=== PATIENT | female | born 1995 | race Caucasian/White ===

== ENCOUNTER 2017-04-07 02:45 | Emergency (ER) | payer BC ==
[~2017-04-07] VITALS: Ht 165.1 cm; Wt 66.7 kg
[2017-04-07 03:07] VITALS: BP 127/65
[2017-04-07] MEDS ORDERED: ONDANSETRON ODT 4 MG TAB.RAPDIS PO ONE (03:15)
--- NOTE | 2017-04-07 03:19 | PHYS DOC ---
Adult General Chief Complaint Chief Complaint: NAUSEA/VOMITING/DIARRHEA HPI HPI Patient is a 21 year old female who presents with complaint of nausea, vomiting , loose stools. Patient states her symptoms started 2 days ago and have been persistent. Patient states that she has had a total of 3 episodes of vomiting over the past 24 hours. Patient states that she is unable to eat or drink due to her symptoms. Patient denies any fevers. Patient states that she tried taking Dramamine [id number] for her symptoms with no relief. Patient denies any significant past medical or surgical history. Patient states that she stopped her menstrual period 3 days ago. Patient states that she is having discomfort in her upper abdomen but denies any sharp localizing pain anywhere else. Review of Systems Review of Systems Constitutional: Denies fever or chills [] Eyes: Denies change in visual acuity, redness, or eye pain [] HENT: Denies nasal congestion or sore throat [] Respiratory: Denies cough or shortness of breath [] Cardiovascular: Denies chest pain or edema [] GI: Nausea, vomiting, diarrhea, abdominal pain [] : Denies dysuria or hematuria [] Musculoskeletal: Denies back pain or joint pain [] Integument: Denies rash or skin lesions [] Neurologic: Denies headache, focal weakness or sensory changes [] Current Medications Current Medications Current Medications Medications (Trade) Dose Ordered Sig/Carlos Start Time Stop Time Status Last Admin Dose Admin Ondansetron HCl (Zofran Odt) 8 mg 1X ONCE 04/07/17 03:15 04/07/17 03:16 UNV 04/07/17 03:15 8 MG Allergies Allergies Allergies Coded Allergies Type Severity Reaction Last Updated Verified Penicillins Allergy Unknown 04/07/17 Yes latex Allergy Unknown 04/07/17 Yes Physical Exam Physical Exam Constitutional: Alert, afebrile, appears in mild to moderate discomfort. [] HENT: Normocephalic, atraumatic, bilateral external ears normal, oropharynx moist, no oral exudates, nose normal. [] Eyes: PERRLA, EOMI, conjunctiva normal, no discharge. [] Neck: Normal range of motion, no tenderness, supple, no stridor. [] Cardiovascular:Heart rate regular rhythm, no murmur [] Lungs & Thorax: Bilateral breath sounds clear to auscultation [] Abdomen: Bowel sounds normal, soft, no tenderness, no masses, no pulsatile masses. [] Skin: Warm, dry, no erythema, no rash. [] Back: No tenderness, no CVA tenderness. [] Extremities: No tenderness, no cyanosis, no clubbing, ROM intact, no edema. [] Neurologic: Alert and oriented X 3, normal motor function, normal sensory function, no focal deficits noted. [] Current Patient Data Vital Signs Vital Signs Date Time Temp Pulse Resp B/P (MAP) Pulse Ox O2 Delivery O2 Flow Rate FiO2 04/07/17 03:07 98.5 89 18 127/65 (85) 99 Room Air Lab Results Laboratory Tests Test 04/07/17 03:00 04/07/17 03:19 Urine Collection Type Unknown Urine Color Yellow Urine Clarity Hazy Urine pH 6.0 Urine Specific [place] <=1.005 Urine Protein Neg Urine Glucose (UA) Neg mg/dL Urine Ketones (Stick) 15 mg/dL Urine Blood Neg Urine Nitrite Neg Urine Bilirubin Neg Urine Urobilinogen Dipstick 0.2 mg/dL Urine Leukocyte Esterase Trace Urine RBC 0 /HPF Urine WBC Occ /HPF Urine Squamous Epithelial Cells Many /LPF Urine Bacteria 0 /HPF Bedside Urine HCG, Qualitative hcg negative Current Medications Medications (Trade) Dose Ordered Sig/Carlos Route PRN Reason Start Time Stop Time Status Last Admin Dose Admin Ondansetron HCl (Zofran Odt) 8 mg 1X ONCE PO 04/07/17 03:15 04/07/17 03:16 UNV 04/07/17 03:15 8 MG EKG EKG Not performed [] Radiology/Procedures Radiology/Procedures Not performed [] Course & Med Decision Making Course & Med Decision Making Pertinent Labs and Imaging studies reviewed. (See chart for details) Patient's abdominal exam is nonlocalizing and patient's vital signs are within normal limits. Patient's symptoms appear consistent with likely viral gastroenteritis illness. The patient was given Zofran ODT and was given oral fluids which she is able to tolerate without difficulty in the emergency department. Patient provided with a prescription for Zofran for symptoms. Advise follow-up in 3 days a primary doctor for reevaluation and return to emergency department for any worsening symptoms. Patient voiced understanding and in agreement with treatment plan. [] Dragon Disclaimer Dragon Disclaimer This chart was dictated in whole or in part using Voice Recognition software in a busy, high-work load, and often noisy Emergency Department environment. It may contain unintended and wholly unrecognized errors or omissions. Departure Departure: Impression: Primary Impression: Nausea and vomiting Additional Impression: Diarrhea Disposition: 01 HOME, SELF-CARE Condition: IMPROVED Referrals: LOUIE ROB MD (PCP) Patient Instructions: Diarrhea, Nausea and Vomiting Additional Instructions: Follow-up to primary doctor in the next 3 days. Return to the emergency department for any worsening symptoms. Scripts Ondansetron (ZOFRAN ODT) 4 Mg Tab.rapdis 1 TAB SL Q8HRS Y for NAUSEA/VOMITING, #15 TAB Prov: TAL TAI MD 04/07/17 Problem Qualifiers Primary Impression: Nausea and vomiting Vomiting type: unspecified Vomiting Intractability: non-intractable Qualified Codes: R11.2 - Nausea with vomiting, unspecified Additional Impression: Diarrhea Diarrhea type: presumed infectious Qualified Codes: A09 - Infectious gastroenteritis and colitis, unspecified TAL TAI MD Apr 07, 2017 03:19
[2017-04-07] MEDS ORDERED: ONDANSETRON ODT 4 MG TAB.RAPDIS ONE (03:21)
[2017-04-07] MEDS ORDERED: ONDA4TAB10 SL (03:59)
[2017-04-07 04:00] LABS: BILIRUBIN,URINE NEG (NEG); CLARITY,URINE HAZY; COLOR,URINE YELLOW; GLUCOSE,URINE NEG (NEG); NITRITE,URINE NEG (NEG); RBC,URINE 0 /HPF (0-2); UROBILINOGEN,URINE 0.2 mg/dL (0.2 mg/dL); WBC,URINE OCC /HPF (0-4)
[2017-04-07 04:01] LABS: BACTERIA,URINE 0 /HPF (0-FEW); SQUAMOUS EPITHELIAL CELL,UR MANY /LPF
== END 2017-04-07 04:05 | disposition home or self-care (01) ==
LOC: ER 02:45
DX: R11.2 Nausea with vomiting, unspecified (principal); R10.9 Unspecified abdominal pain; A09 Infectious gastroenteritis and colitis, unspecified; Z88.1 Allergy status to other antibiotic agents; Z91.040 Latex allergy status
CPT/HCPCS: 81001; 81025; 87086; 99284; Q0162

== ENCOUNTER 2021-10-12 11:09 | Emergency (ER) | payer MEDICAID ==
[~2021-10-12] VITALS: Ht 165.1 cm; Wt 66.1 kg
[~2021-10-12 11:09] MED LIST: ONDA4TAB10 SL
[2021-10-12 11:48] VITALS: BP 118/68
--- NOTE | 2021-10-12 12:20 | PHYS DOC ---
Past History Past Medical History: No Pertinent History Additional Past Medical Histor: CPVID (MOOK GUZMAN APRN) Past Surgical History: No Surgical History (MOOK GUZMAN APRN) Alcohol Use: Occasionally Drug Use: Marijuana (MOOK GUZMAN APRN) General Adult EDM: Chief Complaint: ABDOMINAL PAIN IN HPI: HPI: Patient is a 25-year-old female who presents to the emergency department for a complaint of right upper quadrant pain that radiates to her right flank that started this morning. Patient is reporting nausea. She rates her pain 5 out of 10. No treatment prior to arrival. No alleviating or aggravating factors. Patient is approximately 23 weeks , her estimated due date is February 12. Her OB is at [facility]. Patient reports that she is recovering from COVID-19 over . Patient is on 81 mg of aspirin. Patient denies any vaginal bleeding, vaginal discharge, fevers, pelvic pain, vomiting. Patient reports that she has had these symptoms in the past earlier this year and was told she had kidney stones. (MOOK GUZMAN APRN) Review of Systems: Review of Systems: Constitutional: See HPI GI: See HPI : See HPI Musculoskeletal: See HPI (MOOK GUZMAN APRN) Allergies: Allergies: Allergies Coded Allergies Type Severity Reaction Last Updated Verified Penicillins Allergy Unknown 04/07/17 Yes azithromycin Allergy Unknown 10/12/21 Yes cefpodoxime Allergy Unknown 10/12/21 Yes latex Allergy Unknown 04/07/17 Yes sulfamethoxazole Allergy Unknown 10/12/21 Yes trimethoprim Allergy Unknown 10/12/21 Yes (MOOK GUZMAN APRN) Physical Exam: PE: Constitutional: Well developed, well nourished, no acute distress, non-toxic appearance. [] HENT: Normocephalic, atraumatic, bilateral external ears normal, oropharynx moist, no oral exudates, nose normal. [] Eyes: PERRL, EOMI, conjunctiva normal, no discharge. [] Neck: Normal range of motion, no tenderness, supple, no stridor. [] Cardiovascular:Heart rate regular rhythm, no murmur [] Lungs & Thorax: Bilateral breath sounds clear to auscultation [] Abdomen: Bowel sounds normal, soft, right upper quadrant pain with palpation, no guarding, abdomen,, no masses, no pulsatile masses. [] Skin: Warm, dry, no erythema, no rash. [] Back: No tenderness, right CVA tenderness Extremities: No tenderness, no cyanosis, no clubbing, ROM intact, no edema. [] Neurologic: Alert and oriented X 3, normal motor function, normal sensory function, no focal deficits noted. [] Psychologic: Affect normal, judgement normal, mood normal. [] (MOOK GUZMAN APRN) Current Patient Data: Labs: Laboratory Tests Test 10/12/21 11:55 10/12/21 12:08 Urine Collection Type Unknown Urine Color Yellow Urine Clarity Cloudy Urine pH 6.0 Urine Specific [place] 1.020 Urine Protein 30 mg/dl Urine Glucose (UA) Neg mg/dL Urine Ketones (Stick) Neg mg/dL Urine Blood Large Urine Nitrite Neg Urine Bilirubin Neg Urine Urobilinogen Dipstick 0.2 mg/dL Urine Leukocyte Esterase Mod Urine RBC 11-20 /HPF Urine WBC 5-10 /HPF Urine Squamous Epithelial Cells Many /LPF Urine Bacteria Mod /HPF White Blood Count 10.6 x10^3/uL Red Blood Count 3.85 x10^6/uL Hemoglobin 12.2 g/dL Hematocrit 34.9 % Mean Corpuscular Volume 91 fL Mean Corpuscular Hemoglobin 32 pg Mean Corpuscular Hemoglobin Concent 35 g/dL Red Cell Distribution Width 13.9 % Platelet Count 244 x10^3/uL Neutrophils (%) (Auto) 82 % Lymphocytes (%) (Auto) 13 % Monocytes (%) (Auto) 4 % Eosinophils (%) (Auto) 0 % Basophils (%) (Auto) 0 % Neutrophils # (Auto) 8.7 x10^3uL Lymphocytes # (Auto) 1.4 x10^3/uL Monocytes # (Auto) 0.4 x10^3/uL Eosinophils # (Auto) 0.0 x10^3/uL Basophils # (Auto) 0.0 x10^3/uL Maternal Serum HCG Beta Subunit 07541 mIU/mL Sodium Level 138 mmol/L Potassium Level 3.6 mmol/L Chloride Level 103 mmol/L Carbon Dioxide Level 25 mmol/L Anion Gap 10 Blood Urea Nitrogen 7 mg/dL Creatinine 0.5 mg/dL Estimated GFR (Cockcroft-Gault) 151.6 BUN/Creatinine Ratio 14 Glucose Level 83 mg/dL Calcium Level 8.6 mg/dL Total Bilirubin 0.4 mg/dL Aspartate Amino Transf (AST/SGOT) 16 U/L Alanine Aminotransferase (ALT/SGPT) 15 U/L Alkaline Phosphatase 106 U/L Total Protein 6.7 g/dL Albumin 3.3 g/dL Albumin/Globulin Ratio 1.0 Lipase 74 U/L Current Medications Medications (Trade) Dose Ordered Sig/Carlos Route PRN Reason Start Time Stop Time Status Last Admin Dose Admin Meropenem 1 gm/ Sodium Chloride 100 ml @ 200 mls/hr Q8HRS IV 10/12/21 16:00 Vital Signs: Vital Signs Date Time Temp Pulse Resp B/P (MAP) Pulse Ox O2 Delivery O2 Flow Rate FiO2 10/12/21 11:48 97.9 84 16 118/68 (85) 100 Room Air (MOOK GUZMAN APRN) EKG: EKG: [] (MOOK GUZMAN APRN) Radiology/Procedures: Radiology/Procedures: []PROCEDURE: ABDOMEN COMPLETE US ABDOMEN COMPLETE History: RUQ PAIN, RT FLANK PAIN, r/o kidney stones Comparison: None. Technique: Sonographic examination of the abdomen. Findings: Pancreas: Visualized portions are unremarkable. Liver: The liver measures 15.2 cm. Liver echotexture is normal. No focal hepatic lesions. Hepatopetal flow in the portal vein. Gallbladder: No gallstones, wall thickening or pericholecystic fluid. Bile ducts: The common duct measures 3 mm. Right kidney: 10.6 cm length. Moderate right hydronephrosis. No focal lesion. Left kidney: 11.5 cm length. No focal lesion, calculi or hydronephrosis. Spleen: 10.2 cm length. No focal lesion. Aorta/IVC: Visualized portions are unremarkable. Other: No ascites. Impression: 1. Moderate right hydronephrosis. 2. No cholelithiasis or acute cholecystitis. Electronically signed by: Jalen Dial MD (10/12/2021 1:20 PM) [facility] DICTATED AND SIGNED BY: JALEN DIAL MD DATE: 10/12/21 1318 CC: MARY KAY ARREOLA [employer] [employer]; MOOK GUZMAN APRN ~MTH0 0 (MOOK GUZMAN APRN) Heart Score: C/O Chest Pain: N/A Risk Factors: Risk Factors: DM, Current or recent (<one month) smoker, HTN, HLP, family history of CAD, obesity. Risk Scores: Score 0 - 3: 2.5% MACE over next 6 weeks - Discharge Home Score 4 - 6: 20.3% MACE over next 6 weeks - Admit for Clinical Observation Score 7 - 10: 72.7% MACE over next 6 weeks - Early Invasive Strategies (MOOK GUZMAN APRN) Course & Med Decision Making: Course & Med Decision Making Pertinent Labs and Imaging studies reviewed. (See chart for details) [] Patient presents to the emergency department for right upper quadrant pain that radiates to her right flank. Patient denies any related complaints, she denies any vaginal bleeding, discharge, pelvic pain. Patient's vital signs are stable and she is in no acute distress. Patient reports that she has had these symptoms before and was told she had kidney stones. Blood work, urinalysis and ultrasound of abdomen was performed in the ER. CBC and CMP unremarkable. Patient[place] beta hCG was [address]. Patient does have large blood, moderate leukocytes, 5-10 white blood cells and moderate bacteria indicative of UTI. Patient's ultrasound shows moderate right hydronephrosis, no stone is seen however given patient's history of kidney stones and her hydronephrosis I have concern for kidney stone on the right side. Patient is treated with an antibiotic. Patient reports that she is allergic to cephalosporins and penicillins, patient will be treated with meropenem. Due to patient's FACE BURLER being at [facility], I contacted them to transfer patient for urology coverage and OB admission. Dr. Padgett is the admitting physician and patient will be transferred to [facility]. I discussed these findings with patient and she is agreeable to care plan. She is very tearful and states that she cannot afford an ambulance transfer because she cannot even afford her own food. Patient is stable at this time to be transferred via private vehicle. Patient advised to leave the emergency department and go directly to [facility]. IV discontinued prior to ER departure. (MOOK GUZMAN APRN) Dragon Disclaimer: Dragon Disclaimer: This electronic medical record was generated, in whole or in part, using a voice recognition dictation system. (MOOK GUZMAN APRN) Attending Co-Sign The patient was seen and interviewed as well as examined at the bedside. The chart was reviewed. The case was discussed. Agree with the plan of care. (KIM DOYLE DO) Departure Departure: Impression: Primary Impression: Pyelonephritis Additional Impression: Hydronephrosis Qualified Codes: N13.30 - Unspecified hydronephrosis Disposition: 02 SHORT TERM HOSPITAL Condition: STABLE Referrals: MARY KAY ARREOLA [employer] [employer]EDER (PCP) Patient Instructions: Pyelonephritis, Adult Additional Instructions: You were seen in the emergency department for right upper quadrant and right flank pain. You do have a urinary tract infection and a possible right kidney stone. You are being transferred to [facility]. Your admitting physician is Dr. Padgett. You must leave this emergency department and go directly to [facility]. Please do not stop and please do not eat anything on the way. MOOK GUZMAN APRN Oct 12, 2021 12:20 KIM DOYLE DO Oct 13, 2021 06:48
[2021-10-12 12:33] LABS: BASO % 0 % (0-3); EOS % 0 % (0-3); HEMATOCRIT 34.9 % (36.0-47.0); HEMOGLOBIN 12.2 g/dL (12.0-15.5); LYMPH # 1.4 x10^3/uL (1.0-4.8); LYMPH % 13 % (24-48); MEAN CORPUSCULAR HEMOGLOBIN 32 pg (25-35); MEAN CORPUSCULAR HGB CONC 35 g/dL (31-37); MEAN CORPUSCULAR VOLUME 91 fL (79-100); MONO # 0.4 x10^3/uL (0.0-1.1); MONO % 4 % (0-9); NEUT # 8.7 x10^3uL (1.8-7.7); NEUT % 82 % (31-73); PLATELET COUNT 244 x10^3/uL (140-400); RED BLOOD COUNT 3.85 x10^6/uL (3.50-5.40); RED CELL DISTRIBUTION WIDTH 13.9 % (11.5-14.5); WHITE BLOOD COUNT 10.6 x10^3/uL (4.0-11.0)
[2021-10-12 12:38] LABS: CALCIUM 8.6 mg/dL (8.5-10.1); CREATININE 0.5 mg/dL (0.6-1.0); GFR 151.6; POTASSIUM 3.6 mmol/L (3.5-5.1)
[2021-10-12 12:43] LABS: ALBUMIN 3.3 g/dL (3.4-5.0); TOTAL BILIRUBIN 0.4 mg/dL (0.2-1.0); TOTAL PROTEIN 6.7 g/dL (6.4-8.2)
[2021-10-12 12:46] LABS: BILIRUBIN,URINE NEG (NEG); CLARITY,URINE CLOUDY; COLOR,URINE YELLOW; GLUCOSE,URINE NEG (NEG); NITRITE,URINE NEG (NEG); UROBILINOGEN,URINE 0.2 mg/dL (0.2 mg/dL)
[2021-10-12 12:48] LABS: BACTERIA,URINE MOD /HPF (0-FEW); SQUAMOUS EPITHELIAL CELL,UR MANY /LPF
--- NOTE | 2021-10-12 13:22 | RAD ---
US ABDOMEN COMPLETE History: RUQ PAIN, RT FLANK PAIN, r/o kidney stones Comparison: None. Technique: Sonographic examination of the abdomen. Findings: Pancreas: Visualized portions are unremarkable. Liver: The liver measures 15.2 cm. Liver echotexture is normal. No focal hepatic lesions. Hepatopet al flow in the portal vein. Gallbladder: No gallstones, wall thickening or pericholecystic fluid. Bile ducts: The common duct measures 3 mm. Right kidney: 10.6 cm length. Moderate right hydronephrosis. No focal lesion. Left kidney: 11.5 cm length. No focal lesion, calculi or hydronephrosis. Spleen: 10.2 cm length. No focal lesion. Aorta/IVC: Visualized portions are unremarkable. Other: No ascites. Impression: 1. Moderate right hydronephrosis. 2. No cholelithiasis or acute cholecystitis. Electronically signed by: Jalen Paris MD (10/12/2021 1:20 PM) [facility]
[2021-10-12] MEDS ORDERED: MEROPENEM 1 GM VIAL IV ONE (15:35)
[2021-10-12] MEDS ORDERED: IV NORMAL SALINE 100ML 100 ML ONE (15:35)
[2021-10-12] MEDS ORDERED: MEROPENEM 1 GM in IV NORMAL SALINE 100ML 100 ML IV SCH (16:00)
== END 2021-10-12 16:19 | disposition short-term general hospital (02) ==
LOC: ER 11:09
DX: O23.02 Infections of kidney in pregnancy, second trimester (principal); O99.891 Other specified diseases and conditions complicating pregnancy; N13.30 Unspecified hydronephrosis; Z3A.23 23 weeks gestation of pregnancy; Z88.0 Allergy status to penicillin; Z88.1 Allergy status to other antibiotic agents; Z91.040 Latex allergy status; Z88.2 Allergy status to sulfonamides
CPT/HCPCS: 36415; 76700; 80053; 81001; 83690; 84702; 85025; 87086; 96365; 99285; J2185